=== PATIENT | female | born 1945 | race Caucasian/White ===

== ENCOUNTER 2019-05-06 07:46 | Day surgery (SDC) | payer OTHER, BC ==
[2019-04-26 17:03] VITALS: BMI 21.9
--- NOTE | 2019-05-06 10:11 | OP ---
Operative Note - Note: Operative Date: 05/06/19 Pre-Operative Diagnosis: Right ankle pain s/p ankle ORIF Operation: Right ankle hardware removal Post-Operative Diagnosis: Same as Pre-op Surgeon: Bubba Lanier Ekg Tech: Yamilex Nelson Anesthesia: General Operative Report Dictated: Yes
[2019-05-06] MEDS ORDERED: PROPOFOL 20 ML ONE ×2 (10:21)
[2019-05-06] MEDS ORDERED: SUCCINYLCHOLINE CHLORIDE 200 MG/10 ML SYRINGE ONE (10:22)
[2019-05-06] MEDS ORDERED: PHENYLEPHRINE HCL 10 MG/1 ML SINGLE DOSE VIAL ONE (10:22)
[2019-05-06] MEDS ORDERED: ePHEDrine SULFATE 50 MG/1 ML AMPULE ONE (10:22)
[2019-05-06] MEDS ORDERED: KETOROLAC TROMETHAMINE 30 MG/1 ML VIAL ONE (10:43)
[2019-05-06] MEDS ORDERED: LIDOCAINE HCL/PF 2% SDV 5ML VIAL ONE (10:43)
[2019-05-06] MEDS ORDERED: DEXAMETHASONE SOD PHOSPHATE 4 MG/1 ML VIAL ONE (10:43)
[2019-05-06] MEDS ORDERED: ceFAZolin SODIUM 1 GM VIAL ONE (10:46)
[2019-05-06] MEDS ORDERED: GLYCOPYRROLATE 0.2 MG/1 ML VIAL ONE (10:47)
[2019-05-06] MEDS ORDERED: oxyCODONE HCL 5 MG TABLET PO PRN ×2 (11:05)
[2019-05-06] MEDS ORDERED: ACETAMINOPHEN 325 MG TABLET (FP) PO PRN (11:05)
[2019-05-06] MEDS ORDERED: ONDANSETRON 4 MG/2 ML VIAL IVPUSH PRN (11:05)
[2019-05-06] MEDS ORDERED: LACTATED RINGERS SOLUTION 1,000 ML IV SCH (11:15)
[2019-05-06] MEDS ORDERED: BUPIVACAINE HCL/PF 0.5% (5MG/ML) 10 ML VIAL ONE (11:17)
[2019-05-06] MEDS ORDERED: BUPIVACAINE HCL/PF 0.5% (5 MG/ML) 30 ML VIAL IJ ONE (11:19)
[2019-05-06 12:53] VITALS: TEMP 97.7
--- NOTE | 2019-05-06 13:34 | OP ---
DATE OF OPERATION: 05/06/2019 PREOPERATIVE DIAGNOSIS: Retained right ankle hardware. POSTOPERATIVE DIAGNOSIS: Retained right ankle hardware. PROCEDURE: Right ankle removal of hardware, lateral malleolus. SURGEON: Bubba Cali MD [employer]RE[facility] [employer] HELPER: ERIC Blair ANESTHESIA: General. POSTOPERATIVE CONDITION: Stable. COMPLICATIONS: None. INDICATIONS: This is a pleasant woman who had undergone ORIF of a pilon-type fracture and was having persistent discomfort over her lateral hardware. She had no pain over her medial hardware. We discussed the option of removal of hardware, after review of the risks, benefits, and alternatives, including bleeding, infection, neurovascular injury, need for further surgery, recurrent postoperative pain and stiffness, broken or retained hardware, re-fracture. We discussed benefits, such as relief of pain. We discussed the alternative of continued observation and topicals. Patient did elect to proceed with removal of hardware. We also discussed medical risks, such as heart attack, stroke, DVT, PE, and . The patient voiced understanding and consented to the procedure. PROCEDURE: Patient brought to the operating room where general anesthetic was administered. The right lower extremity was then prepped and draped in the usual sterile fashion. A preoperative dose of antibiotics was given and the usual timeout procedure was performed. The previous incision was then used and a 15-blade was used to create the new incision over the plate. Blunt spreading was used to expose the plate. An elevator was used to remove any attached tissue. The screws were then individually removed. The plate was then removed using an elevator. The holes were cleaned out using a curette. The wound was then irrigated. The subcutaneous tissue was now approximated using 4-0 Vicryl. The skin was closed using 4-0 nylon. Sterile dressings were placed. The patient was extubated and transferred to the recovery room in stable condition. BUBBA CALI M.D. AGATHA/[id number]
[2019-05-06 13:53] VITALS: BP 134/79; PULSE 96
--- NOTE | 2019-05-10 14:14 | PATH ---
Surgical Pathology Report Patient Name: DAPHNIE BASS Med. Rec. #: [id number] /Age/Gender: 1945 (Age: 73) / F Account: [id number] Location: [facility] Taken: 05/06/2019 Received: 05/06/2019 Reported: 05/10/2019 Physicians: Bubba Lanier M.D. Specimen(s) Received HARDWARE, ANKLE, RIGHT Clinical History Right ankle hardware Final Diagnosis HARDWARE, ANKLE, RIGHT, REMOVAL: SURGICAL HARDWARE. MACROSCOPIC DIAGNOSIS. Electronically Signed Mally Eckert M.D. Gross Description Received fresh labeled "removed hardware of right ankle," is an 8.3 x 0.8 x 0.2 cm harrison metallic plate. Also received within the same container are 7 harrison metallic screws ranging from 1.2-2.1 cm in length. No soft tissue is present. No sections are submitted, gross only. 05/07/2019 saudi05/07/2019
== END 2019-05-06 13:45 | disposition home or self-care (01) ==
LOC: FASU 07:46
PROVIDERS: ATTEND Orthopaedic Surgery Sports Medicine
PROC: 0SPF04Z Removal of Internal Fixation Device from Right Ankle Joint, Open Approach (ICD-10-PCS; principal; 2019-05-06 10:53)
DX: Z47.2 Encounter for removal of internal fixation device (principal)
CPT/HCPCS: 88300-TC; 94760